=== PATIENT | female | born 1990 | race African-American/Black ===

== ENCOUNTER 2017-01-19 20:10 | Emergency (ER) | payer BC, MEDICAID ==
[~2017-01-19] VITALS: Ht 157.5 cm; Wt 59.0 kg
--- NOTE | 2017-01-19 20:56 | Emergency Room Report ---
History of Present Illness General Chief Complaint: Abdominal Pain Source: Patient Present Illness HPI Patient is a 27-year-old female presented after increased lower bowel pain. Patient had associated increased vaginal discharge. She gradual onset of symptoms approximately 2 weeks ago. She denied any fever. She denied any dysuria. She reported having generalized lower abdominal pain. She's not sure she is . She denied vomiting. Pain was described as a burning sensation. She reported having recent unprotected sex. Allergies: Coded Allergies: No Known Allergies (Unverified , 01/19/17) Patient History Past Medical History: see triage record Last Menstrual Period: 01/07/17 Now: No Reviewed Nursing Documentation: PMH: Agreed, PSxH: Agreed Nursing Documentation-PMH Past Medical History: No History, Except For Hx Asthma: Yes Review of Systems All Other Systems: negative except mentioned in HPI Physical Exam Vital Signs Date Time Temp Pulse Resp B/P Pulse Ox O2 Delivery O2 Flow Rate FiO2 01/19/17 20:13 98.8 85 16 101/63 100 Room Air Sp02 EP Interpretation: reviewed, normal General Appearance: normal inspection, well appearing, no apparent distress, alert, GCS 15 Head: atraumatic ENT: normal ENT inspection, hearing grossly normal, normal voice Neck: normal inspection, full range of motion, supple, no bony tend Respiratory: normal inspection, lungs clear, normal breath sounds, no respiratory distress, no retraction, no wheezing Cardiovascular #1: regular rate, rhythm, no edema Gastrointestinal: normal inspection, normal bowel sounds, non tender, soft, no guarding, no hernia Genitourinary: no CVA tenderness Musculoskeletal: normal inspection, back normal, normal range of motion Neurologic: normal inspection, alert, oriented x3, responsive, invisible braces orthodontist III-XII nml as tested, speech normal Psychiatric: normal inspection, judgement/insight normal, mood/affect normal Skin: normal inspection, normal color, no rash Medical Decision Making Diagnostic Impression: Primary Impression: Pelvic inflammatory disease ER Course Patient presented for abdominal pain. Differential diagnoses included ischemic bowel, appendicitis, perforated viscus, abdominal aortic aneurysm, inferior myocardial infarction, viral gastroenteritis, pelvic inflammatory disease. A urinalysis and urine test were ordered. The patient's history consistent with PID The patient was given IM Toradol for pain. She was advised to have outpatient STD testing. The previous test was negative. Patient was given IM Rocephin and prescription for doxycycline. The patient is advised to follow up with primary care doctor in 1-2 days. Patient is advised to return if any worsening condition or if any changes in status that are concerning. Labs Test 01/19/17 20:37 Urine Color Pale yellow Urine Appearance Clear Urine pH 6 (4.5-8.0) Urine Specific Fidelity 1.020 (1.005-1.035) Urine Protein Negative (NEGATIVE) Urine Glucose (UA) Negative (NEGATIVE) Urine Ketones Negative (NEGATIVE) Urine Occult Blood Negative (NEGATIVE) Urine Nitrite Negative (NEGATIVE) Urine Bilirubin Negative (NEGATIVE) Urine Urobilinogen Normal MG/DL (0.0-1.0) Urine Leukocyte Esterase 3+ (NEGATIVE) Urine RBC 2-4 /HPF (0 - 2) Urine WBC 5-10 /HPF (0 - 2) Urine Squamous Epithelial Cells Few /LPF (NONE/OCC) Urine Bacteria Moderate /HPF (NONE) Urine HCG, Qualitative Negative Chest X-Ray Diagnostic Results Chest X-Ray Ordered: No Last Vital Signs Date Time Temp Pulse Resp B/P Pulse Ox O2 Delivery O2 Flow Rate FiO2 01/19/17 20:13 98.8 85 16 101/63 100 Room Air Status: improved Disposition: HOME, SELF-CARE Condition: Stable Scripts Ibuprofen* (MOTRIN*) 600 Mg Tablet 600 MG ORAL Q8H Y for For Pain, #30 TAB 0 Refills Prov: Mat Hunt 01/19/17 Doxycycline Monohydrate* (DOXYCYCLINE MONOHYDRATE*) 100 Mg Capsule 100 MG ORAL Q12H, #14 CAP 0 Refills Prov: Mat Hunt 01/19/17 Mat Hunt Jan 19, 2017 20:56
[2017-01-19 21:00] VITALS: BP 105/61
[2017-01-19] MEDS ORDERED: Ketorolac 60mg Inj IM ONE (21:15)
[2017-01-19 21:16] LABS: APPEARANCE,URINE CLEAR; KETONES,URINE NEGATIVE (NEGATIVE); LEUKOCYTE ESTERASE ,URINE 3+ (NEGATIVE); NITRITE,URINE NEGATIVE (NEGATIVE); PH,URINE 6 (4.5-8.0); PROTEIN,URINE NEGATIVE (NEGATIVE); UROBILINOGEN,URINE NORMAL MG/DL (0.0-1.0)
[2017-01-19 21:33] LABS: BACTERIA,URINE MODERATE /HPF; SQUAMOUS EPITHELIAL CELL,UR FEW /LPF (NONE/OCC)
[2017-01-19] MEDS ORDERED: IBUPROFEN600 MG ORAL (21:38)
[2017-01-19] MEDS ORDERED: DOXYCYCLINE MO100 MG ORAL (21:38)
[2017-01-19] MEDS ORDERED: Lidocaine 1% MPF 10mg/ml 5ml IM ONE (21:45)
[2017-01-19 22:00] VITALS: BP 113/61
== END 2017-01-19 22:00 | disposition home or self-care (01) ==
LOC: EMR 20:54
DX: N73.9 Female pelvic inflammatory disease, unspecified (principal); N89.8 Other specified noninflammatory disorders of vagina; J45.909 Unspecified asthma, uncomplicated
CPT/HCPCS: 81003; 81025; 87086; 87181; 96372; 99284; J0696

== ENCOUNTER 2019-01-10 23:58 | Emergency (ER) | payer MEDICAID ==
[~2019-01-10] VITALS: Ht 157.5 cm; Wt 57.2 kg
[~2019-01-10 23:58] MED LIST: DOXYCYCLINE MO100 MG ORAL; IBUPROFEN600 MG ORAL
[2019-01-11] MEDS ORDERED: ALBUTEROL2.5 MG/3 M INH (00:09)
--- NOTE | 2019-01-11 00:15 | NUR ---
ED Nurse Note: Patient walked in to ER c/o sore throat, ear ache, head ache. AAO x4, VSS at this time, skin is warm to touch.
[2019-01-11 00:20] VITALS: BP 106/61
--- NOTE | 2019-01-11 00:32 | Emergency Room Report ---
History of Present Illness General Chief Complaint: Sore Throat Source: Patient Present Illness HPI Patient reports that approximately 2:00 in the afternoon She had some fish And soon after that began having some irritation to her throat Also some pain Patient started also having right ear pain and a runny nose She correlates sees very closely with the fish intake Denies any chest pain or shortness of breath denies any vomiting Denies any back or flank pain denies any rash Allergies: Coded Allergies: No Known Allergies (Unverified , 01/19/17) Patient History Past Medical History: see triage record Pertinent Family History: none Last Menstrual Period: 12/25/18 Now: No : 0 Para: 0 Reviewed Nursing Documentation: PMH: Agreed; PSxH: Agreed Nursing Documentation-PMH Past Medical History: No History, Except For Hx Asthma: Yes Review of Systems All Other Systems: negative except mentioned in HPI Physical Exam Vital Signs Date Time Temp Pulse Resp B/P (MAP) Pulse Ox O2 Delivery O2 Flow Rate FiO2 01/11/19 00:04 98.2 79 16 106/61 (76) 100 Room Air Sp02 EP Interpretation: reviewed, normal General Appearance: well appearing, no apparent distress Head: normocephalic, atraumatic Eyes: bilateral eye PERRL, bilateral eye EOMI ENT: hearing grossly normal, normal pharynx, uvula midline, other - Clear rhinorrhea, right tympanic membrane mildly bulging Neck: full range of motion, supple, no meningismus, no bony tend Respiratory: lungs clear, normal breath sounds, no rhonchi, no respiratory distress, no retraction, no accessory muscle use Cardiovascular #1: normal peripheral pulses, regular rate, rhythm, no edema, no gallop, no JVD, no murmur Gastrointestinal: normal bowel sounds, non tender, soft, no mass, no organomegaly, non-distended, no guarding, no hernia, no pulsatile mass, no rebound Genitourinary: no CVA tenderness Musculoskeletal: normal inspection Neurologic: oriented x3, responsive, epidemiologist III-XII nml as tested, motor strength/ tone normal, sensory intact Psychiatric: mood/affect normal Skin: normal color, no rash, warm/dry, palpation normal Lymphatic: normal inspection, no adenopathy Medical Decision Making Diagnostic Impression: Primary Impression: Food allergy ER Course Multiple differentials including but not limited to retained foreign body, allergic reaction, incidental URI, symptoms starting quested densely at similar time to intake of food are considered Patient has intervention initiated Airway remains patent voice is clear Consideration for foreign body is low as well and patient will have initial conservative outpatient trial possible reaction to the food intake Last Vital Signs Date Time Temp Pulse Resp B/P (MAP) Pulse Ox O2 Delivery O2 Flow Rate FiO2 01/11/19 00:20 98.2 82 16 106/61 100 Room Air Status: improved Disposition: HOME, SELF-CARE Condition: Improved Scripts Famotidine (PEPCID AC) 20 Mg Tablet 20 MG PO DAILY, #12 TAB Prov: Jaden Grady DO 01/11/19 Diphenhydramine Hcl* (BENADRYL*) 25 Mg Capsule 25 MG ORAL Q6H PRN for Itching, #20 CAP Prov: Jaden Grady DO 01/11/19 Methylprednisolone (Methylprednisolone*) 4MG Dspk 4 MG ORAL DIRECTED for 6 Days, #21 EA 0 Refills Day 1: Two tablets before breakfast, one after lunch, one after dinner, and two at bedtime. If started late in the day, take all six tablets at once or divide into two or three doses, unless otherwise directed by prescriber. Day 2: One tablet before breakfast, one after lunch, one after dinner, and two at bedtime Day 3: One tablet before breakfast, one after lunch, one after dinner, and one at bedtime Day 4: One tablet before breakfast, one after lunch, and one at bedtime Day 5: One tablet before breakfast and one at bedtime Day 6: One tablet before breakfast Prov: Jaden Grady DO 01/11/19 Additional Instructions: Patient is provided with the discharge instructions notified to follow up with primary doctor in the next 2-3 days otherwise return to the er with any worsening symptoms. Please note that this report is being documented using [employer] technology. This can lead to erroneous entry secondary to incorrect interpretation by the dictating instrument. Jaden Grady DO Jan 11, 2019 00:32
[2019-01-11] MEDS ORDERED: BENADRYL25 MG ORAL (00:40)
[2019-01-11] MEDS ORDERED: PEPCID AC20 M2 PO (00:40)
[2019-01-11] MEDS ORDERED: MEDROL DOSEPAK4 MG ORAL (00:40)
[2019-01-11 00:49] VITALS: BP 106/61
--- NOTE | 2019-01-11 00:49 | NUR ---
ED Nurse Note: Pt cleared by health care Provider for discharge. DC instructions/prescription was given and explained to pt and verbalized understanding of teachings. All medical deviecs such as ID band removed. Pt is AAO x4, ambulatory and left with all personal belongings.
== END 2019-01-11 00:50 | disposition home or self-care (01) ==
LOC: EMR 01-11 00:09
DX: T78.1XXA Other adverse food reactions, not elsewhere classified, initial encounter (principal); J45.909 Unspecified asthma, uncomplicated; X58.XXXA Exposure to other specified factors, initial encounter
CPT/HCPCS: 99282; J7512